=== PATIENT | female | born 1975 | race Caucasian/White ===

== ENCOUNTER 2023-08-06 09:52 | Outpatient (OUT) | payer OTHER, SELFPAY ==
--- NOTE | 2023-08-06 10:08 | US_ITS ---
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 FINDINGS: RIGHT LOBE: Markedly heterogeneous echotexture. Lobe size: 6.7 x 2.7 x 2.0 cm LEFT LOBE: Markedly heterogeneous and contains a 13 mm TR 3 nodule within mid body and a 9 mm TR 4 nodule within inferior pole. Lobe size: 7.0 x 2.3 x 2.5 cm ISTHMUS: Thickened and markedly heterogeneous Thickness: 7 mm US/US thyroid IMPRESSION: 1. Enlarged markedly heterogeneous thyroid gland; nonspecific. No hypervascularity. 2. Consider follow-up ultrasound evaluation in one year. TR4 (moderately suspicious): If > 1.0 cm, follow-up ultrasound in 1, 2, 3, and 5 years. If > 1.5 cm, fine needle aspiration (FNA). TR3 (mildly suspicious): > 1.5 cm, follow-up ultrasound in 1, 3, and 5 years. > 2.5 cm, fine needle aspiration. Electronically authenticated by: HALEY HOPE Date: 08/08/2023 08:11
[2023-08-06 11:26] LABS: Free T4 0.73 ng/dL (0.76-1.46)
[2023-08-06 11:35] LABS: Free T3 1.93 pg/mL (2.18-3.98); Thyroid Stimulating Hormone 5.151 uIU/mL (0.358-3.740)
== END 2023-08-06 09:53 | disposition home or self-care (01) ==
LOC: LAB 09:53
PROVIDERS: Visit Provider Internal Medicine
DX: E06.3 Autoimmune thyroiditis (principal); E04.1 Nontoxic single thyroid nodule
CPT/HCPCS: 36415; 76536; 84439; 84443; 84481